=== PATIENT | female | born 1995 ===

== ENCOUNTER 2022-11-19 03:17 | Inpatient (IN) | payer SELFPAY ==
[2022-11-19] MEDS ORDERED: Morphine 2 MG/ML SYRINGE IVPUSH ONE ×3 (03:29→04:19)
[2022-11-19] MEDS ORDERED: Lactated Ringers 1,000 ML IV SCH (03:30)
[2022-11-19] MEDS ORDERED: Ondansetron 4 MG/2 ML SDV IVPUSH ONE (03:37)
[2022-11-19] MEDS ORDERED: Iopamidol 612 MG/ML 100 ML Bottle IVPUSH ONE (03:47)
[2022-11-19 04:05] LABS: CHLORIDE,CL 95 mmol/L (98-107); SODIUM,NA 136 mmol/L (136-145)
[2022-11-19 04:07] LABS: ANION GAP 17.3 meq/L (7-15); ESTIMATED GFR 94 mL/min (>=60)
[2022-11-19] MEDS ORDERED: Magnesium Sulfate/Water 2 GM in Premix Bag 1 BAG IV ONE ×2 (04:16→17:09)
[2022-11-19] MEDS: Piperacillin/Tazobactam 3.375 GM in Sodium Chloride 0.9% 100 ML IV SCH ×4 (04:52→22:47)
[2022-11-19] MEDS: Diatrizoate Meglumine/Diatrizoate Sodium 37% 30 ML Bottle PO SCH ×3 (05:09→05:11)
[2022-11-19] MEDS ORDERED: HYDROmorphone 1 MG/ML Syringe IVPUSH ONE (05:13)
[2022-11-19] MEDS: Lactated Ringers 1,000 ML IV SCH ×3 (05:16→20:53)
[2022-11-19] MEDS: Potassium Chloride Riders 10 MEQ in Premix Bag 1 BAG IV SCH ×4 (06:09→09:29)
[2022-11-19] MEDS ORDERED: Ibuprofen 400 MG Tab PO PRN (06:24)
[2022-11-19] MEDS: HYDROmorphone 1 MG/ML Syringe IVPUSH PRN ×8 (06:51→22:42)
[2022-11-19] MEDS: Sodium Chloride 0.9% 10 ML Syringe FLUSH PRN ×11 (07:24→22:42)
[2022-11-19] MEDS: Ondansetron 4 MG/2 ML SDV IVPUSH PRN ×2 (09:29→13:38)
[2022-11-20] MEDS: oxyCODONE 5 MG Tab PO PRN ×2 (00:45→05:24)
[2022-11-20] MEDS: HYDROmorphone 1 MG/ML Syringe IVPUSH PRN ×8 (03:27→23:32)
[2022-11-20] MEDS: Sodium Chloride 0.9% 10 ML Syringe FLUSH PRN ×13 (03:27→23:33)
[2022-11-20] MEDS: Lactated Ringers 1,000 ML IV SCH ×2 (03:33→17:43)
[2022-11-20] MEDS: Piperacillin/Tazobactam 3.375 GM in Sodium Chloride 0.9% 100 ML IV SCH ×4 (04:40→22:54)
[2022-11-20 07:49] LABS: ANION GAP 11.6 meq/L (7-15)
[2022-11-20] MEDS: Ketorolac 15 MG/ML SDV IVPUSH SCH ×2 (17:17→22:53)
[2022-11-20] MEDS: Lactulose Soln 10 GM/15 ML 30 ML UD Cup PO SCH (17:20)
[2022-11-21] MEDS: Lactated Ringers 1,000 ML IV SCH (00:57)
[2022-11-21] MEDS: HYDROmorphone 1 MG/ML Syringe IVPUSH PRN ×4 (03:09→11:00)
[2022-11-21] MEDS: Ketorolac 15 MG/ML SDV IVPUSH SCH ×2 (04:52→10:15)
[2022-11-21] MEDS: Piperacillin/Tazobactam 3.375 GM in Sodium Chloride 0.9% 100 ML IV SCH ×2 (04:52→10:32)
[2022-11-21] MEDS: Sodium Chloride 0.9% 10 ML Syringe FLUSH PRN ×5 (04:53→11:33)
[2022-11-21 08:04] LABS: ANION GAP 10.9 meq/L (7-15)
[2022-11-21] MEDS: Lactulose Soln 10 GM/15 ML 30 ML UD Cup PO SCH (08:05)
[2022-11-21] MEDS ORDERED: Lactated Ringers 1,000 ML IV SCH (09:45)
[2022-11-21] MEDS ORDERED: HYDROmorphone 1 MG/ML Syringe IVPUSH ONE (12:03)
== END 2022-11-21 13:03 | DRG 871 ==
LOC: EDSEX → LL.ED 03:17 → LL.MS 05:44
PROVIDERS: ADMIT Hospitalist; ATTEND Hospitalist
DX: A41.9 Sepsis, unspecified organism (principal); K85.90 Acute pancreatitis without necrosis or infection, unspecified; K81.0 Acute cholecystitis; R65.20 Severe sepsis without septic shock; F17.210 Nicotine dependence, cigarettes, uncomplicated; E83.42 Hypomagnesemia; E87.6 Hypokalemia; Z79.899 Other long term (current) drug therapy
CPT/HCPCS: 36415; 74177; 80048; 80053; 81001; 81025; 82247; 83036; 83605; 83690; 83735; 84075; 84450; 84460; 84478; 85025; 85027; 86140; 87040; 87086; A9270-GY; J1170; J1885; J2270; J2405; J2543; J3475; J3480; J3490; J7120; Q9963; Q9967

== ENCOUNTER 2022-12-01 22:52 | Emergency (ER) | payer SELFPAY ==
[2022-12-01] MEDS ORDERED: Sodium Chloride 0.9% 1,000 ML IV ONE (23:07)
[2022-12-01] MEDS ORDERED: Ondansetron 4 MG/2 ML SDV IVPUSH ONE (23:07)
[2022-12-02 00:05] LABS: ANION GAP 17.6 meq/L (7-15)
[2022-12-02] MEDS ORDERED: Ketorolac 30 MG/ML SDV IVPUSH ONE (00:58)
[2022-12-02] MEDS ORDERED: Potassium Bicarbonate/Cit Ac 20 MEQ Effervescent Tab PO ONE (00:58)
[2022-12-02] MEDS ORDERED: Lactulose Soln 10 GM/15 ML 30 ML UD Cup PO ONE (00:59)
[2022-12-02] MEDS ORDERED: Ondansetron 4 MG/2 ML SDV IVPUSH ONE (01:00)
[2022-12-02 14:21] LABS: BARBITURATE SCREEN,URINE NEGATIVE (NEGATIVE); BENZODIAZEPINES SCREEN,URINE NEGATIVE (NEGATIVE); EDDP,URINE SCREEN NEGATIVE (NEGATIVE); TCA SCREEN,URINE NEGATIVE (NEGATIVE); THC SCREEN,URINE 50 NG/ML NEGATIVE (NEGATIVE)
[2022-12-02 14:29] LABS: BUPRENORPHINE SCREEN,URINE NEGATIVE (NEGATIVE)
== END 2022-12-02 01:25 | disposition left against medical advice (07) ==
LOC: LL.ED 22:52
DX: K85.20 Alcohol induced acute pancreatitis without necrosis or infection (principal); F10.29 Alcohol dependence with unspecified alcohol-induced disorder; E86.0 Dehydration; E87.6 Hypokalemia; Z72.0 Tobacco use
CPT/HCPCS: 36415; 74019; 80053; 80305; 80307; 81001; 82150; 83690; 85025; 96361; 96374; 96375; 96376; 99284; A9270; J1885; J2405; J7030